=== PATIENT | male | born 1950 | race Caucasian/White ===

== ENCOUNTER 2018-10-23 14:32 | Emergency (ER) | payer BC, MEDICARE ==
[~2018-10-23] VITALS: Ht 180.3 cm; Wt 110.0 kg
--- NOTE | 2018-10-23 15:21 | NUR ---
HAILEY Del Rosario made aware Patient had left sided chest pressure, non radiating this morning at [address] Per PA EKG only needed at this time. Previously done in triage.
[2018-10-23 16:01] VITALS: BP 118/78
== END 2018-10-23 16:02 | disposition home or self-care (01) ==
LOC: ER 14:33
DX: I10 Essential (primary) hypertension (principal); I48.91 Unspecified atrial fibrillation; Z00.00 Encounter for general adult medical examination without abnormal findings
CPT/HCPCS: 93005; 99283

== ENCOUNTER 2019-01-07 16:38 | Emergency (ER) | payer BC, MEDICARE ==
[~2019-01-07] VITALS: Ht 177.8 cm; Wt 87.8 kg
--- NOTE | 2019-01-07 18:10 | NUR ---
Medical record released faxed to [facility].
[2019-01-07 19:03] VITALS: BP 127/93
== END 2019-01-07 19:08 | disposition home or self-care (01) ==
LOC: ER 16:38
DX: R51 Headache (principal); I48.91 Unspecified atrial fibrillation; I12.9 Hypertensive chronic kidney disease with stage 1 through stage 4 chronic kidney disease, or unspecified chronic kidney disease; E11.22 Type 2 diabetes mellitus with diabetic chronic kidney disease; N18.9 Chronic kidney disease, unspecified
CPT/HCPCS: 99283

== ENCOUNTER 2019-02-12 01:43 | Outpatient (CLI) | payer BC, MEDICARE | END 2019-02-12 23:59 | disposition home or self-care (01) | LOC: DIABETIC 01:43 | PROVIDERS: ATTEND Family Medicine | DX: E11.22 Type 2 diabetes mellitus with diabetic chronic kidney disease (principal); N18.3 Chronic kidney disease, stage 3 (moderate); Z79.899 Other long term (current) drug therapy; Z79.84 Long term (current) use of oral hypoglycemic drugs | CPT/HCPCS: G0108 ==

== ENCOUNTER 2019-05-12 04:11 | Outpatient (CLI) | payer BC, MEDICARE | END 2019-05-12 23:59 | disposition home or self-care (01) | LOC: DIABETIC 04:11 | PROVIDERS: ATTEND Family Medicine | DX: E11.22 Type 2 diabetes mellitus with diabetic chronic kidney disease (principal); N18.3 Chronic kidney disease, stage 3 (moderate); Z79.84 Long term (current) use of oral hypoglycemic drugs; Z79.899 Other long term (current) drug therapy | CPT/HCPCS: G0108 ==